=== PATIENT | male | born 1970 | race Caucasian/White ===

== ENCOUNTER 2018-12-20 09:09 | Emergency (ER) | payer BC ==
[2018-12-20 09:51] VITALS: BP 115/70
--- NOTE | 2018-12-20 10:31 | UC ---
Shoulder Pain HPI - HPI Summary HPI Summary: 3 WEEKS OF LEFT SHOULDER PAIN. FEELS SLIGHTLY WEAK. NO NUMBNESS OR TINGLING. SYMPTOMS STARTED AFTER DOING LIFTING FOR CROSS FIT TRAINING. HAS PAIN WITH MOVEMENT BUT HAS RETAINED FULL RANGE OF MOTION. NO PREVIOUS SHOULDER INJURY. - History of Current Complaint Chief Complaint: UCUpperExtremity Stated Complaint: LEFT ARM PAIN Time Seen by Provider: 12/20/18 09:50 Hx Obtained From: Patient Onset/Duration: Gradual Onset, Lasting Weeks, Still Present Timing: Constant Severity Initially: Moderate Severity Currently: Moderate Location Of Pain: Is Discrete @ - LEFT ANTERIOR SHOULDER Pain Intensity: 5 Pain Scale Used: 0-10 Numeric Character: Sharp, Aching Aggravating Factor(s): Movement Alleviating Factor(s): Rest Associated Signs And Symptoms: Positive: Weakness. Negative: Numbness/Tingling Related History: Dominant Hand Left - Allergies/Home Medications Allergies/Adverse Reactions: Allergies Allergy/AdvReac Type Severity Reaction Status Date / Time No Known Allergies Allergy Verified 12/20/18 09:51 PMH/Surg Hx/FS Hx/Imm Hx Previously Healthy: Yes - Surgical History Surgical History: None - Family History Known Family History: Positive: Non-Contributory - Social History Alcohol Use: None Substance Use Type: None Smoking Status (MU): Never Smoked Tobacco Review of Systems All Other Systems Reviewed And Are Negative: Yes Constitutional: Positive: Negative Skin: Positive: Negative Respiratory: Positive: Negative Cardiovascular: Positive: Negative Gastrointestinal: Positive: Negative Musculoskeletal: Positive: Arthralgia, Myalgia Physical Exam Triage Information Reviewed: Yes Appearance: Well-Appearing, No Pain Distress, Well-Nourished Vital Signs: Initial Vital Signs Temp 97.6 F 12/20/18 09:46 Pulse 62 12/20/18 09:46 Resp 16 12/20/18 09:46 BP 115/70 12/20/18 09:46 Pulse Ox 98 12/20/18 09:46 Vital Signs Reviewed: Yes Eyes: Positive: Conjunctiva Clear ENT: Positive: Hearing grossly normal Neck: Positive: Supple Respiratory: Positive: No respiratory distress, No accessory muscle use Cardiovascular: Positive: Pulses Normal Abdomen Description: Positive: Soft Musculoskeletal: Positive: ROM Intact, No Edema, Other: - LEFT SHOULDER NEGATIVE ROTATOR CUFF TESTING. POSITIVE ROSALINDA. PAIN OVER BICEPS INSERTION Neurological: Positive: Alert Psychological: Positive: Age Appropriate Behavior Skin: Negative: Rashes Diagnostics - Radiology LEFT SHOULDER XRAYS Radiology Interpretation Completed By: Radiologist Summary of Radiographic Findings: 1. Mild osteoarthritis at the acromioclavicular joint. No significant arthropathic change at the glenohumeral joint. 2. Negative for fracture or malalignment. 3. Negative for calcific tendinopathy or abnormal soft tissue contour. Shoulder Course/Dx - Differential Dx/Diagnosis Provider Diagnosis: Tendinopathy of left biceps Discharge - Sign-Out/Discharge Documenting (check all that apply): Patient Departure All imaging exams completed and their final reports reviewed: Yes - Discharge Plan Condition: Stable Disposition: HOME Patient Education Materials: Tendinitis (ED) Referrals: Kory Zimmer MD [Medical Doctor] - 1 Week Lita Thompson NP [Primary Care Provider] - If Needed Additional Instructions: XRAY TODAY NEGATIVE FOR FRACTURE OR DISLOCATION. I AM CONCERNED YOU MAY HAVE BICEPS TENDINITIS. CALL ORTHOPEDICS TODAY TO SCHEDULE A FOLLOW-UP APPOINTMENT FOR NEXT WEEK. YOU MAY BENEFIT FROM [facility]. OTC IBUPROFEN OR ALEVE NEEDED FOR DISCOMFORT. REST, ICE NEEDED FOR SYMPTOM RELIEF. BE SURE TO GO THROUGH SLOW RANGE OF MOTION AND STRETCHING EXERCISES DAILY YOU ARE ABLE TO PREVENT STIFFENING UP AND MAKING THE DISCOMFORT WORSE. IBUPROFEN MAX DOSE: 600MG (3 TABS) EVERY 6 HRS OR 800MG (4 TABS) EVERY 8 HRS OR NAPROXEN MAX DOSE: 440MG (2 TABS) EVERY 12 HRS TYLENOL MAX DOSE: 1000MG (2 EXTRA STRENGTH TABS) EVERY 8 HRS OR 650MG (2 REGULAR TABS) EVERY 6 HRS - Billing Disposition and Condition Condition: STABLE Disposition: Home
== END 2018-12-20 11:15 | disposition home or self-care (01) ==
LOC: UCCORT 09:09
DX: M75.22 Bicipital tendinitis, left shoulder (principal); M19.012 Primary osteoarthritis, left shoulder
CPT/HCPCS: 99201; G0463